=== PATIENT | male | born 1985 | race African-American/Black ===

== ENCOUNTER 2016-04-18 10:47 | Emergency (ER) | payer SELFPAY ==
[~2016-04-18] VITALS: Ht 170.2 cm; Wt 70.0 kg
[2016-04-18 10:49] VITALS: BP 147/84; PULSE 75; RESP 15; TEMP 98.2; O2SAT 99
[2016-04-18] MEDS ORDERED: IBUP800T23 PO (11:38)
[2016-04-18] MEDS ORDERED: CYCL1TAB29 PO (11:38)
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
[2016-04-18] MEDS ORDERED: ORPHENADRINE INJ 60 MG/2 ML AMP IM ONE (11:45)
[2016-04-18] MEDS ORDERED: KETOROLAC TROMETHAMINE 60 MG/2 ML (IM) VIAL IM ONE (11:45)
== END 2016-04-18 11:57 | disposition home or self-care (01) ==
LOC: NEPB 10:47
DX: S50.02XA Contusion of left elbow, initial encounter (principal); S29.012A Strain of muscle and tendon of back wall of thorax, initial encounter; V49.50XA Passenger injured in collision with unspecified motor vehicles in traffic accident, initial encounter
CPT/HCPCS: 96372; 99283; J1885; J2360